=== PATIENT | female | born 1955 | race Caucasian/White ===

== ENCOUNTER 2017-01-13 11:36 | Emergency (ER) | payer OTHER ==
[~2017-01-13] VITALS: Ht 162.6 cm; Wt 51.7 kg
[2017-01-13] MEDS ORDERED: HYDR50TA3 PO (11:57)
[2017-01-13] MEDS ORDERED: POTA10CA PO (11:57)
[2017-01-13] MEDS ORDERED: KETOROLAC 30 MG/1 ML IV ONE (12:30)
[2017-01-13] MEDS ORDERED: SODIUM CHLORIDE FLUSH 10ML SYR IVF ONE (12:30)
[2017-01-13] MEDS ORDERED: KETOROLAC 30 MG/1 ML ONE (12:40)
[2017-01-13 14:06] VITALS: BP 137/67
== END 2017-01-13 14:45 | disposition home or self-care (01) ==
LOC: ED 14:08
DX: S16.1XXA Strain of muscle, fascia and tendon at neck level, initial encounter (principal); M54.2 Cervicalgia; I10 Essential (primary) hypertension; Z87.891 Personal history of nicotine dependence; W01.0XXA Fall on same level from slipping, tripping and stumbling without subsequent striking against object, initial encounter; Y93.89 Activity, other specified; Y92.89 Other specified places as the place of occurrence of the external cause; Y99.8 Other external cause status
CPT/HCPCS: 72141; 93005; 96374; 99284; J1885

== ENCOUNTER → 2017-02-08 | Outpatient (CLI) | payer OTHER ==
[~2017-02-08] MED LIST: HYDR50TA3 PO; POTA10CA PO
== END | disposition home or self-care (01) ==
LOC: RAD 10:40
PROVIDERS: ATTEND Neurological Surgery
DX: M41.85 Other forms of scoliosis, thoracolumbar region (principal); M43.12 Spondylolisthesis, cervical region; M43.16 Spondylolisthesis, lumbar region; M43.8X4 Other specified deforming dorsopathies, thoracic region
CPT/HCPCS: 72082

== ENCOUNTER → 2018-06-03 | Outpatient (CLI) | payer MEDICARE, OTHER | END | disposition home or self-care (01) | LOC: CFH 10:33 | DX: Z12.2 Encounter for screening for malignant neoplasm of respiratory organs (principal); R91.1 Solitary pulmonary nodule; Z87.891 Personal history of nicotine dependence | CPT/HCPCS: G0297 ==

== ENCOUNTER → 2019-05-29 | Outpatient (CLI) | payer MEDICARE, OTHER | END | disposition home or self-care (01) | LOC: CFH 10:10 | DX: R91.1 Solitary pulmonary nodule (principal); Z87.891 Personal history of nicotine dependence | CPT/HCPCS: G0297 ==

== ENCOUNTER → 2019-06-12 | Outpatient (CLI) | payer MEDICARE, OTHER | END | disposition home or self-care (01) | LOC: RAD 11:04 | PROVIDERS: ATTEND Internal Medicine Cardiovascular Disease | DX: Z01.810 Encounter for preprocedural cardiovascular examination (principal); R00.2 Palpitations; I10 Essential (primary) hypertension; E78.5 Hyperlipidemia, unspecified | CPT/HCPCS: 78452; 93017; A9502 ==